=== PATIENT | female | born 1945 | race Caucasian/White ===

== ENCOUNTER → 2019-04-29 12:41 | Outpatient (CLI) | payer MEDICARE, SELFPAY ==
--- NOTE | ~2019-04-29 | MM_ITS ---
EXAMINATION: MM screening [facility] BI w danny HISTORY: Screening mammogram TECHNIQUE: Craniocaudal and mediolateral oblique 3-D tomosynthesis images were obtained and synthetic 2-D images were generated. CAD analysis was submitted and interpreted. COMPARISON: 03/08/2018, 03/02/2016, 02/25/2014 bilateral digital screening mammogram examinations BREAST PARENCHYMAL COMPOSITION: There are scattered areas of fibroglandular density. FINDINGS: There is no evidence of suspicious mass, calcification, or architectural distortion to sugg est malignancy in either breast. There has been no suspicious interval change. IMPRESSION: 1. No mammographic evidence of malignancy. 2. Recommend routine screening mammography in one year. BI-RADS Category 1: Negative Reviewed, dictated and finalized at location A.
== END ==
PROVIDERS: PCP Internal Medicine; Visit Provider Obstetrics & Gynecology Gynecology
DX: Z12.31 Encounter for screening mammogram for malignant neoplasm of breast (principal)
CPT/HCPCS: 77063; 77067

== ENCOUNTER 2020-03-03 08:59 | Outpatient (CLI) | payer MEDICARE, SELFPAY ==
--- NOTE | ~2020-03-03 | US_ITS ---
EXAMINATION: US retroperitoneal duplex ltd, US retroperitoneal comp EXAM DATE: 03/03/2020 09:49 (accession [id number]), 03/03/2020 09:50 (accession [id number]) INDICATION: N18.32 - Chronic kidney disease, stage 3b. Hypertension. TECHNIQUE: Multiple grayscale and Doppler images of the kidneys and renal arteries were obtained (by a technologist who performed the scan) and subsequently reviewed. There is no prior study for compar giovanna. FINDINGS: Right kidney: There is normal contour and echogenicity. It measures 9.3 x 3.7 x 3.5 centimeters. Th ere are no focal renal lesions identified. There is no hydronephrosis. Left kidney: There is normal contour and echogenicity. It measures 9.2 x 3.5 x 4.1 centimeters. Ther e is a cyst measuring up to 2.8 cm. There is no hydronephrosis. Bladder unremarkable. Bilateral ureteral jets were confirmed. The aorta peak systolic velocity is 113 cm/s. The right renal artery peak systolic velocity is 176 cm /s in the proximal segment, 111 cm/s in the mid segment, and 124 cm/s in the distal segment. The left renal artery peak systolic velocity is 109 cm/s in the proximal segment, 115 cm/s in the mid segment , and 114 cm/s in the distal segment. IMPRESSION: 1. Sonographically unremarkable kidneys. 2. Renal artery Doppler velocities within normal limits. Reviewed, dictated and finalized at location B. E CHEF IMPRESSION: 1. Sonographically unremarkable kidneys. 2. Renal artery Doppler velocities within normal limits.
== END 2020-03-03 09:00 | disposition home or self-care (01) ==
PROVIDERS: PCP Internal Medicine; Visit Provider Clinical Nurse Specialist
DX: N18.32 Chronic kidney disease, stage 3b (principal); I10 Essential (primary) hypertension
CPT/HCPCS: 76770; 93976

== ENCOUNTER → 2020-06-25 10:17 | Outpatient (CLI) | payer MEDICARE, SELFPAY ==
--- NOTE | ~2020-06-25 | MM_ITS ---
EXAMINATION: MM screening [facility] BI w danny HISTORY: Screening TECHNIQUE: Craniocaudal and mediolateral oblique 3-D tomosynthesis images were obtained and synthetic 2-D images were generated. CAD analysis was submitted and interpreted. COMPARISON: Comparison to multiple prior studies sequentially, with oldest reviewed study dated 02/25/2014. BREAST PARENCHYMAL COMPOSITION: There are scattered areas of fibroglandular density. FINDINGS: There is no evidence of suspicious mass, calcification, or architectural distortion to sugg est malignancy in either breast. There has been no suspicious interval change. IMPRESSION: 1. No mammographic evidence of malignancy. 2. Recommend routine screening mammography in one year. BI-RADS Category 1: Negative Reviewed, dictated and finalized at location A.
--- NOTE | ~2020-06-25 | DEXA_ITS ---
Bone Density Report Name: Laine Spencer Age: 75 Sex: Female Ethnicity: White Date of : 1945 Indication: postmenopausal; screening for osteoporosis; height loss; Referring Provider: ANNE LEMA Study: Bone densitometry was performed. Exam Date: June 25, 2020 Accession number: [id number] Bone Density: Region BMD T-score Z-score Classification AP Spine (L1-L4) 0.929 -1.1 1.2 Osteopenia Femoral Neck (Left) 0.648 -1.8 0.2 Osteopenia Total Hip (Left) 0.867 -0.6 1.1 Normal Femoral Neck (Right) 0.735 -1.0 1.0 Normal Total Hip (Right) 0.908 -0.3 1.4 Normal Total Hip Mean 0.888 -0.5 1.3 Normal World Health Organization criteria for BMD impression classify patients as: Normal (T-score at or above -1.0), Osteopenia (T-score between -1.0 and -2.5), or Osteoporosis (T-score at or below -2.5). 10-year Fracture Risk(1): Major Osteoporotic Fracture 11% Hip Fracture 2.3% Reported Risk Factors: [place] (), Neck BMD=0.648, BMI=34.0 (1) FRAX(R) Version 3.08. Fracture probability calculated for an untreated patient. Fracture probability may be lower if the patient has received treatment. Previous Exams: Region Exam Age BMD T-score BMD Change BMD Change Date g/cm2 vs Baseline vs Previous AP Spine(L1-L4) 06/25/2020 75 0.929 -1.1 0.022 -0.025* 03/02/2016 71 0.954 -0.8 0.047* 0.047* 02/25/2014 69 0.907 -1.3 Total Hip(Left) 06/25/2020 75 0.867 -0.6 -0.002 0.010 03/02/2016 71 0.858 -0.7 -0.011 -0.011 02/25/2014 69 0.869 -0.6 Total Hip(Right) 06/25/2020 75 0.908 -0.3 0.017 0.012 03/02/2016 71 0.896 -0.4 0.004 0.004 02/25/2014 69 0.891 -0.4 *Denotes significance at 95% confidence level, LSC for AP Spine = 0.022 g/cm2, LSC for Total Hip = 0.027 g/cm2 Clinical Information Provided by Patient: Has used the following medications: Vitamin D, Calcium Patient maximum height was 62 Menopause Age: 42 Drinks caffeinated beverages Onset of menses at age 19 Number of children 0 Impression: The patient has low bone mass, based on the Left Femoral Neck T-score. The patient has an estimated ten-year risk of hip fracture of 2.3% and an estimated ten-year risk of major fracture of 11%, based on the WHO FRAX algorithm. The BMD for the AP Spine(L1-L4) decreased, changing by -0.025 since the last D
== END ==
PROVIDERS: PCP Internal Medicine; Visit Provider Obstetrics & Gynecology Gynecology
DX: Z12.31 Encounter for screening mammogram for malignant neoplasm of breast (principal); Z78.0 Asymptomatic menopausal state; M85.89 Other specified disorders of bone density and structure, multiple sites
CPT/HCPCS: 77063; 77067; 77080

== ENCOUNTER → 2021-08-31 13:22 | Outpatient (CLI) | payer MEDICARE, SELFPAY ==
--- NOTE | ~2021-08-31 | MM_ITS ---
EXAMINATION: MM screening [facility] BI w danny HISTORY: Screening mammogram TECHNIQUE: Craniocaudal and mediolateral oblique 3-D tomosynthesis images were obtained and synthetic 2-D images were generated. CAD analysis was submitted and interpreted. COMPARISON: 06/25/2020, 04/29/2019, 03/08/2018 BREAST PARENCHYMAL COMPOSITION: There are scattered areas of fibroglandular density. FINDINGS: There is no suspicious mass, calcification, or architectural distortion to suggest malignan cy in either breast. There has been no suspicious interval change. IMPRESSION: 1. No mammographic evidence of malignancy. 2. Recommend routine screening mammography in one year. BI-RADS Category 1: Negative Reviewed, dictated and finalized at location A.
== END ==
PROVIDERS: PCP Internal Medicine; Visit Provider Obstetrics & Gynecology Gynecology
DX: Z12.31 Encounter for screening mammogram for malignant neoplasm of breast (principal)
CPT/HCPCS: 77063; 77067

== ENCOUNTER → 2022-02-07 10:48 | Outpatient (CLI) | payer MEDICARE, SELFPAY ==
--- NOTE | ~2022-02-07 | US_ITS ---
Renal-Bladder ultrasound Clinical History: Essential hypertension Technique: Real-time sonographic imaging of the kidneys and urinary bladder was performed. Findings: The right kidney measures 9.1 cm in length and the left kidney measures 8.8 cm. There is no hydronephrosis or renal calculus identified. Renal cortical echogenicity is within normal limits. No solid renal mass lesion is identified. Simple left renal cyst noted. The urinary bladder is partially distended at the time of this exam. No intraluminal echoes are ident ified. No abnormal wall thickening is seen. Impression: No significant abnormality seen. Reviewed, dictated and finalized at location [] E WORKER Impression: No significant abnormality seen.
== END ==
PROVIDERS: PCP Internal Medicine Nephrology; Visit Provider Internal Medicine Nephrology
DX: I10 Essential (primary) hypertension (principal)
CPT/HCPCS: 76775

== ENCOUNTER 2022-03-02 01:27 | Outpatient (CLI) | payer MEDICARE, SELFPAY ==
[2022-02-23 15:13] VITALS: BMI 33.3
--- NOTE | 2022-02-23 15:14 | PC.NURSE ---
Pre Radiology instructions Report to the outpatient [facility] on date _03/02/22 AT 8:30AM____ Procedure Time: _10:30AM___ YOU MAY BE MONITORED AT HOSPITAL FOR UP TO 4 HOURS AFTER YOUR PROCEDURE. A visitors will be allowed to accompany the patient into the hospital. ?The visitor will be instructed to remain with patient at all times or leave the building due to restrictions.? We will allow the visitor to come back to the postoperative area when patient is ready.? NO children visitors allowed at this time. You and your visitor will be asked to self-screen and do not enter if you have any COVID symptoms. A mask is REQUIRED within the hospital. Patients are to have no food or drink 6 hours prior to procedure time Driving will be restricted after the procedure, you must have a person to drive you home. Labs will be drawn in preop area and once reviewed, you will be taken to radiology area for procedure. When the procedure is completed, you will be taken to outpatient where you will be monitored for several hours. You may have one visitor in this area. Other than holding anti-coagulants, patient may take other medication(s) as scheduled. Prior to your appointment date patients are instructed to hold anti-coagulants after discussing with ordering provider to stop. If unable to discontinue anti-coagulants please notify radiologist. ? No aspirin or warfarin (Coumadin) for 7 days prior to the procedure. ? No clopidogrel (Plavix), ticagrelor (Brilinta), prasugrel (Effient) or dabigatran (Pradaxa) for 5 days prior to the procedure. ? No rivaroxaban (Xarelto), apixaban (Eliquis), dipyridamole (Aggrenox or Persantine) or cilostazol (Pletal) for 2 days prior to the procedure. Medications to discontinue per physician: __NONE Date to take last dose: Please leave all valuables, including medications, at home the day of procedure. The hospital will not accept responsibility for valuables. Wear comfortable, loose fitting clothing.? Follow any additional instructions given to you from ordering provider. Telephone instructions given to __PATIENT and asked if any additional questions and then verbalized understanding. Patient advised to call scheduling provider office or registration scheduling [phone] if any additional questions.
[2022-03-02] VITALS (11 sets, daily range): BP systolic 102–152; BP diastolic 43–78; PULSE 64–84; RESP 16–18; TEMP 36.6; O2SAT 99–100
--- NOTE | ~2022-03-02 | US_ITS ---
EXAMINATION: US biopsy renal DATE: 03/02/2022 11:36 INDICATION: Stage III B chronic kidney disease TECHNIQUE: The procedure including the risks, benefits, and alternatives was discussed with the patie nt. Risks discussed included bleeding and infection. The patient understood the risks and agreed to p roceed. A timeout was performed to verify the patient's name, date of , and procedure to be p erformed. The skin overlying the right kidney was prepped and draped in usual sterile fashion. Anes thetic was administered with 1% lidocaine subcutaneously. An 18 gauge core biopsy needle was then us ed to obtain 3 core biopsy specimens under continuous sonographic guidance. The entry site was cleane d and dressed. There were no immediate complications. FINDINGS: Ultrasound images demonstrate the needle in the kidney. IMPRESSION: 1. Ultrasound-guided random right kidney core needle biopsy. Reviewed, dictated and finalized at location A. N CREW
[2022-03-02] MEDS: SODIUM CHLORIDE 0.9% IV 1,000 ML 30 ML IV CONT (08:54)
[2022-03-02 08:57] LABS: Mean Platelet Volume 10.7 fl (7.4-10.4); Platelet Count Result 318 k/mm3 (150-375)
[2022-03-02 09:07] LABS: Prothrombin Time 12.8 Seconds (11.1-14.7)
--- NOTE | 2022-03-02 12:41 | SUR.PHASEII ---
1235 - ambulated to bathroom . gait steady, bandaid remains dry and intact.
== END 2022-03-02 15:30 | disposition home or self-care (01) ==
PROVIDERS: Radiology Diagnostic Radiology; PCP Internal Medicine; Referring Provider Internal Medicine Nephrology; Visit Provider Radiology Diagnostic Radiology
PROC: (CPT 76942; principal; 2022-03-02 10:30)
DX: I12.9 Hypertensive chronic kidney disease with stage 1 through stage 4 chronic kidney disease, or unspecified chronic kidney disease (principal); N18.32 Chronic kidney disease, stage 3b
CPT/HCPCS: 36415; 50200; 76942; 85049; 85610; 88300; 88305; 88313; 88329; 88346; 88348; 88350; J7030

== ENCOUNTER 2022-09-22 01:06 | Day surgery (SDC) | payer MEDICARE, SELFPAY ==
[2022-09-13 13:42] VITALS: BMI 31.2
--- NOTE | 2022-09-21 20:41 | PM.HPGS ---
History of Present Illness History of Present Illness Consent: Risks, benefits, and alternatives have been discussed and questions answered. Patient agrees to proceed with procedure. Chief complaint: other fecal abnormalities Narrative: Laine Spencer is a 77 year old female referred for colon cancer screening Review of Systems Review of Systems: All systems reviewed & are unremarkable except as noted in HPI and below PMFSH Past Medical History Medical History Broken ankle Broken wrist Cholecystectomy planned CKD (chronic kidney disease) stage 3, GFR 30-59 ml/min COVID-19 GERD (gastroesophageal reflux disease) Heart murmur Hyperkalemia Hypertension Family History Family History Father Cerebrovascular accident, Onset Age: 69 Mother Family history of Alzheimer's disease Social History Social History Smoking status: Never smoker Alcohol intake: never Substance use: never Substance use type: does not use Lack of Transportation: No Lack of Food: Never True Current Housing: I Have Housing Concerned About Future Housing: No Difficulty Paying Gas/Electric Bills: No Difficulty Paying for Meds: No Currently Unemployed: No Education: Master's Degree or Higher Difficulty w/ Childcare or Family Care: No Living arrangements: with family Gender identity (if verbalized by the patient): Female Spiritual care concerns: No Meds Home Medications and Allergies Home Medications Medication Instructions Recorded Confirmed Type ergocalciferol (vitamin D2) 1,250 50,000 unit PO WEEKLY 03/04/19 09/13/22 History mcg (50,000 unit) capsule (Vitamin D2) fluticasone propionate 50 2 spray intranasal .prn CONGESTION 01/28/20 09/13/22 History mcg/actuation nasal spray,suspension (Flonase Allergy Relief) amlodipine 2.5 mg tablet 2.5 mg PO QAM #90 tabs 08/01/22 09/13/22 Rx esomeprazole magnesium 40 mg 40 mg PO DAILY #90 caps 08/01/22 09/13/22 Rx capsule,delayed release (Nexium) hydrochlorothiazide 12.5 mg tablet 12.5 mg PO QAM #90 tabs 08/01/22 09/13/22 Rx Allergies Allergy/AdvReac Type Severity Reaction Status Date / Time No Known Allergies Allergy Unknown Verified 09/22/22 09:35 Exam Const: General: alert Orientation/consciousness: patient oriented x3 Resp: Auscultation: clear to auscultation bilaterally Cardio: Rhythm: regular rhythm GI: GI Palp: Yes Soft to palpation and No Tenderness to palpation present (GI) Neuro: General: patient oriented x3 Assessment and Plan Assessment and plan (1) Positive colorectal cancer screening using Cologuard test: Code(s): R19.5 - Other fecal abnormalities Status: Acute Assessment and Plan: Colonoscopy with possible biopsy or polypectomy or cautery or injection of substances.
[2022-09-22 09:35] VITALS: BP 131/65; PULSE 80; RESP 18; TEMP 36.2; O2SAT 99
[2022-09-22] MEDS: LACTATED RINGERS 1,000 ML 150 ML IV CONT (09:46)
--- NOTE | 2022-09-22 10:09 | WPDANESEPPF ---
Anes - Initial Pre Proc Eval Procedure: Operation Date: 09/22/22 11:00 Proposed Procedures p Colonoscopy - Connor Jamil MD Date/Time: 09/22/22 10:09 Surgeon: Connor Jamil MD Pre Op Diagnosis: other fecal abnormalities Patient Data Age: 77 Gender: F Height: 1.57 m Weight: 76.4 kg Last Vital Signs Temp 97.1 F L 09/22/22 09:35 Pulse 80 09/22/22 09:35 Resp 18 09/22/22 09:35 BP 131/65 09/22/22 09:35 Pulse Ox 99 09/22/22 09:35 O2 Del Method Room Air 09/22/22 09:35 Allergies Allergy/AdvReac Type Severity Reaction Status Date / Time No Known Allergies Allergy Unknown Verified 09/22/22 09:35 Home Medications Medication Instructions Recorded Confirmed Type ergocalciferol (vitamin D2) 1,250 50,000 unit PO WEEKLY 03/04/19 09/13/22 History mcg (50,000 unit) capsule (Vitamin D2) fluticasone propionate 50 2 spray intranasal .prn CONGESTION 01/28/20 09/13/22 History mcg/actuation nasal spray,suspension (Flonase Allergy Relief) amlodipine 2.5 mg tablet 2.5 mg PO QAM #90 tabs 08/01/22 09/13/22 Rx esomeprazole magnesium 40 mg 40 mg PO DAILY #90 caps 08/01/22 09/13/22 Rx capsule,delayed release (Nexium) hydrochlorothiazide 12.5 mg tablet 12.5 mg PO QAM #90 tabs 08/01/22 09/13/22 Rx Patient hx anesthesia problems: none Family hx anesthesia problems: none Results Review: All pre-operative results and documents have been reviewed as part of the pre-operative evaluation. [facility] Past Medical History Medical History Broken ankle Broken wrist Cholecystectomy planned CKD (chronic kidney disease) stage 3, GFR 30-59 ml/min COVID-19 GERD (gastroesophageal reflux disease) Heart murmur Hyperkalemia Hypertension Family History Family History Father Cerebrovascular accident, Onset Age: 69 Mother Family history of Alzheimer's disease Social History Social History Smoking status: Never smoker Alcohol intake: never Substance use: never Substance use type: does not use Lack of Transportation: No Lack of Food: Never True Current Housing: I Have Housing Concerned About Future Housing: No Difficulty Paying Gas/Electric Bills: No Difficulty Paying for Meds: No Currently Unemployed: No Education: Master's Degree or Higher Difficulty w/ Childcare or Family Care: No Living arrangements: with family Gender identity (if verbalized by the patient): Female Spiritual care concerns: No Anes - Eval Final PreProcedure Day of Procedure 09/22/22 10:09 Patient weight: normal Heart: regular rate and rhythm Lungs: clear to auscultation Airway: Mallampati scale class II Neurological: alert and oriented Last oral intake: >/= 8 hours ASA classification: III Emergent: no Anesthetic plan: proceed Anesthesia type and monitoring: general GIVS and standard monitoring Results Review: All pre-operative results and documents have been reviewed as part of the pre-operative evaluation. Informed Consent: The patient's anesthetic plan and its attendant risks and benefits were discussed with the patient/family/POA. Questions were solicited and answers provided to the satisfaction of the patient/family/POA.
[2022-09-22 10:41] VITALS: BP 103/57; PULSE 68; RESP 16; O2SAT 96
[2022-09-22 10:51] VITALS: BP 103/52; PULSE 67; RESP 16; O2SAT 96
[2022-09-22 11:01] VITALS: BP 128/62; PULSE 68; RESP 18; O2SAT 99
== END 2022-09-22 11:11 | disposition home or self-care (01) ==
PROVIDERS: PCP Internal Medicine; Visit Provider Internal Medicine Gastroenterology
PROC: 0DJD8ZZ Inspection of Lower Intestinal Tract, Via Natural or Artificial Opening Endoscopic (ICD-10-PCS; CPT 45378; principal; 2022-09-22 11:00)
DX: Z12.11 Encounter for screening for malignant neoplasm of colon (principal); R19.5 Other fecal abnormalities; N18.30 Chronic kidney disease, stage 3 unspecified; K21.9 Gastro-esophageal reflux disease without esophagitis; E87.5 Hyperkalemia; I10 Essential (primary) hypertension; Z79.51 Long term (current) use of inhaled steroids
CPT/HCPCS: G0121; J2704; J7120

== ENCOUNTER → 2022-11-22 10:28 | Outpatient (CLI) | payer MEDICARE, SELFPAY ==
--- NOTE | ~2022-11-22 | MM_ITS ---
EXAMINATION: MM screening [facility] BI w danny HISTORY: Screening mammogram TECHNIQUE: Craniocaudal and mediolateral oblique 3-D tomosynthesis images were obtained and synthetic 2-D images were generated. CAD analysis was submitted and interpreted. COMPARISON: 08/31/2021, 06/25/2020, 04/29/2019 BREAST PARENCHYMAL COMPOSITION: There are scattered areas of fibroglandular density. FINDINGS: No suspicious mass, calcification, or architectural distortion are identified in either joleen ast to suggest malignancy. There has been no suspicious interval change. IMPRESSION: 1. No mammographic evidence of malignancy. 2. Recommend routine screening mammography in one year. BI-RADS Category 1: Negative Reviewed, dictated and finalized at location A.
== END ==
PROVIDERS: PCP Obstetrics & Gynecology Gynecology; Visit Provider Obstetrics & Gynecology Gynecology
DX: Z12.31 Encounter for screening mammogram for malignant neoplasm of breast (principal)
CPT/HCPCS: 77063; 77067

== ENCOUNTER 2024-03-21 10:41 | Outpatient (CLI) | payer MEDICARE, SELFPAY ==
--- NOTE | ~2024-03-21 | MM_ITS ---
EXAMINATION: MM screening [facility] BI w danny HISTORY: Screening TECHNIQUE: Craniocaudal and mediolateral oblique 3-D tomosynthesis images were obtained and synthetic 2-D images were generated. CAD analysis was submitted and interpreted. COMPARISON: Comparison to multiple prior studies sequentially, with oldest reviewed study dated 03/02. BREAST PARENCHYMAL COMPOSITION: Not dense: There are scattered areas of fibroglandular density. FINDINGS: There is no evidence of suspicious mass, calcification, or architectural distortion to sugg est malignancy in either breast. There has been no suspicious interval change. IMPRESSION: 1. No mammographic evidence of malignancy. 2. Recommend routine screening mammography in one year. BI-RADS Category 1: Negative Reviewed, dictated and finalized at location A. KEEPER
== END 2024-03-21 10:42 | disposition home or self-care (01) ==
PROVIDERS: PCP Obstetrics & Gynecology Gynecology; Visit Provider Nurse Practitioner
DX: Z12.31 Encounter for screening mammogram for malignant neoplasm of breast (principal)
CPT/HCPCS: 77063; 77067

== ENCOUNTER 2024-04-01 13:21 | Outpatient (CLI) | payer MEDICARE, SELFPAY ==
--- NOTE | ~2024-04-01 | DEXA_ITS ---
Bone Density Report Name: ADRIAN SOTO Age: 79 Sex: Female Ethnicity: White Date of : 1945 Indication: postmenopausal; screening for osteoporosis; Referring Provider: GILDARDO, ALBERT Study: Bone densitometry was performed. Exam Date: April 01, 2024 Accession number: [id number] Bone Density: Region BMD T-score Z-score Classification AP Spine(L1-L4) 0.886 -1.5 1.1 Osteopenia Femoral Neck (Left) 0.649 -1.8 0.4 Osteopenia Total Hip (Left) 0.905 -0.3 1.6 Normal Femoral Neck (Right) 0.710 -1.3 0.9 Osteopenia Total Hip (Right) 0.926 -0.1 1.8 Normal Total Hip Mean 0.915 -0.2 1.7 Normal World Health Organization criteria for BMD impression classify patients as: Normal (T-score at or above -1.0), Osteopenia (T-score between -1.0 and -2.5), or Osteoporosis (T-score at or below -2.5). 10-year Fracture Risk(1): Major Osteoporotic Fracture 12% Hip Fracture 2.8% Reported Risk Factors: [place] (), Neck BMD=0.649, BMI=34.7 (1) FRAX(R) Version 3.08. Fracture probability calculated for an untreated patient. Fracture probability may be lower if the patient has received treatment. Clinical Information Provided by Patient: Menopause Age: 42 Impression: The patient has low bone mass, based on the Left Femoral Neck T-score. The patient has an estimated ten-year risk of hip fracture of 2.8% and an estimated ten-year risk of major fracture of 12%, based on the WHO FRAX algorithm. Discussion: BONE DENSITY IS LOW AT ONE OR MORE SKELETAL SITES. This patient's lowest T-score is low at one or more skeletal sites. It meets the World Health Organization's (WHO) criteria for ?low bone mass? (T-score between -1.0 and -2.5). The patient's 10-year risk of fracture as calculated by FRAX is less than the threshold where pharmacological therapy is recommended by the National Osteoporosis Foundation (NOF). However, all treatment decisions require clinical judgment and consideration of individual patient factors, including patient preferences, comorbidities, previous drug use, risk factors not captured in the FRAX model (e.g., frailty, falls, vitamin D deficiency, increased bone turnover, interval significant decline in bone density) and possible under or overestimation of fracture risk by FRAX. The patient should follow a healthful lifestyle (good nutrition with adequate calcium and vitamin D, and appropriate weight-bearing exercise). Follow-Up: Consider repeating this study in 2 to 3 years to reassess this patient's status, or sooner if there is some new clinical indication. Reported by: NOY on 04/01/2024 1:55:00 PM. Reviewed, dictated and finalized at location [facility] NULL
--- OUTSIDE RECORDS SUMMARY | 2024-04-01 13:36 | XMS_ITS | Referral Summary ---
Author Organization [facility] Address [address] [place] [address] Care Team Providers Care Stapler Machine Name Role Phone Adebayo Carmen DO Primary Care Provider [phone] Source Comments [facility],non-owned Affiliates and Associated Physician Practices is amultiple site organization consisting of ambulatory clinics and hospital sitesin [place], [place] and [place]. This disclosure is being madepursuant to the Care Everywhere program and may not contain all information available regarding this patient. Last updated 17.[facility] Allergies No known active allergies Medications * Be aware that medications may not be up to date on this document. Alwaysverify current medications with the patient. Medication Sig Dispensed Refills Start Date End Date Status Esomeprazole Magnesium (NEXIUM PO) Active Active Problems Problem Noted Date Diagnosed Date GERD (gastroesophageal reflux disease) 6 Osteoarthritis 12/26/2015 Seasonal allergies 12/26/2015 Social History Tobacco Use Types Packs/Day Years Used Date Smoking Tobacco: Never Smokeless Tobacco: Never Sex and Gender Information Value Date Recorded Sex Assigned at Not on file Gender Identity Not on file Sexual Orientation Not on file Last Filed Vital Signs Vital Sign Reading Time Taken Comments Blood Pressure 142/80 05/05/2017 2:00 PM CDT Pulse 84 05/05/2017 2:00 PM CDT Temperature 36.4 C (97.6 F) 05/05/2017 2:00 PM CDT Respiratory Rate 18 05/05/2017 2:00 PM CDT Oxygen Saturation 98% 05/05/2017 2:00 PM CDT Inhaled Oxygen Concentration - - Weight 72.6 kg (160 lb) 05/05/2017 2:00 PM CDT Height 157.5 cm (5' 2 ) 05/05/2017 2:00 PM CDT Body Mass Index 29.26 05/05/2017 2:00 PM CDT Plan of Treatment Not on file Care Teams Stapler Machine Relationship Specialty Start Date End Date Adebayo Carmen DO PCP - General 03/04/22
--- OUTSIDE RECORDS SUMMARY | 2024-04-01 13:36 | XMS_ITS | Clinical Summary ---
Author Organization [facility] Address [address] [place] [address] Care Team Providers Care Sales Force Administrator Name Role Phone Adebayo Carmen DO Primary Care Provider Source Comments [facility],non-owned Affiliates and Associated Physician Practices is amultiple site organization consisting of ambulatory clinics and hospital sitesin [place], [place], [place] and [place]. This disclosure is being madepursuant to the Care Everywhere program and may not contain all information available regarding this patient. Last updated 17.[facility] Allergies No known active allergies Medications * [...] 05/05/2017 2:00 PM CDT Plan of Treatment Health Maintenance Due Date Last Done Comments BONE DENSITY TESTING 1945 HEPATITIS C SCREENING 01/31/1965 DTAP/TDAP/TD VACCINES (1 - Tdap) 1966 PNEUMOCOCCAL VACCINE 50+ (1 of 1 - PCV) 1997 ZOSTER VACCINE (1 of 2) 1997 SCREENING FOR DIABETES 01/24/2017 Respiratory Syncytial Virus (RSV) Vaccine Pt: or over 60 yrs (1 - 1-dose 75+ series) 2022 COVID-19 VACCINE ( - 2023-2 5 season) 2023 INFLUENZA VACCINE (#1) 2023 DEPRESSION SCREENING 02/21/2024 MEDICARE AWV CALENDAR YEAR 2024 HEPATITIS B VACCINE Aged Out No longe r eligible based on patient's age to complete this topic HIB VACCINE Aged Out No longer eligi ble based on patient's age to complete this topic HPV VACCINE Aged Out No longer eligi ble based on patient's age to complete this topic MENINGOCOCCAL (Group B) VACCINE Aged Out No longer eligible based on patient's age to complete this topic MENINGOCOCCAL VACCINE Aged Out No bozena mechelle eligible based on patient's age to complete this topic Care Teams Sales Force Administrator Relationship Specialty Start Date End Date Adebayo Carmen DO PCP - General 03/04/22
--- OUTSIDE RECORDS SUMMARY | 2024-04-01 13:36 | XMS_ITS | Continuity of Care Document ---
Author Organization [facility] Address [address] [address] [place] [address] Phone Care Team Providers Care Manifest/Order Organizer Print Orders Name Role Phone Mcelroy OD, Boy Unavailable Unavailable Procedures Procedure Date Eye Exam & Treatment Refraction Eye Exam & Treatment Refraction Eye Exam & Treatment Advance Directives Directive Yes / No Effective Date File Name No Information Encounters Encounter Description Practice Location Reason(s) For Visit Diagnoses Date Provider Providers Copied on Encounter [facility], [address] [place] [address] [address], [place], [place], [id number], tel:[phone] [facility] No Information 9-200 9 Mcelroy OD Boy. [address] , [address], [place], [place], [facility], . tel:[phone] [facility], [address] [place] [address] [address], [place], [place], [id number], [place] tel:[phone] [facility] No Information 1-200 8 Mcelroy OD Boy. [address] , [address], [place], [address], [place]. tel:[phone] [facility], [address] [place] [address] [address], [place], [place], [id number], [place] tel:[phone] [facility] No Information 0-200 7 Mcelroy OD Boy. [address] , [address], [place], [address], [place]. tel:[phone] Family History Family Member Type Diagnosis Age At Onset No Information Payers Payer name Insurance type Covered democrat ID Authoriza tion(s) No Information Social History Type Description Quantity Date Captured Comments Sex Female Smoking Status No Information Chief Complaint And Reason For Visit No Information Reason For Referral Reason For Referral No Information History Of Present Illness Encounter Date Complaint History Of Prese nt Illness No Information Functional Status Date Functional Assessmen t No Information Instructions Date Instruction Additional Infor mation No Information Assessments Type Assessment Date No Information Patient Care Teams Name Effective Dates (start - stop) Status Members No Information
--- OUTSIDE RECORDS SUMMARY | 2024-04-01 13:37 | XMS_ITS | Clinical Summary ---
Author Organization [facility] Address [address] [place] [id number] Phone Care Team Providers Care Auricular Detoxification Specialist Name Role Phone HeidiAdebayo burnett Primary Care Provider Allergies No known active allergies Medications Medication Sig Dispensed Refills Start Date End Date Status amLODIPine (NORVASC) 2.5 MG tablet 01/26/2022 Active ergocalciferol (VITAMIN D2) 1.25 MG (16302 UT) capsule 01/27/2022 Active esomeprazole (NexIUM) [address] capsule 01/26/2022 Active hydroCHLOROthiazide (HYDRODIURIL) 12.5 MG tablet 01/26/2022 Active Active Problems Problem Noted Date Diagnosed Date Chronic kidney disease stage 3B 02/02/2022 Essential hypertension 02/02/2022 Dyslipidemia 02/02/2022 COVID-19 12/02/2020 Gastroesophageal reflux disease 12/26/2015 Osteoarthritis 12/26/2015 Seasonal allergy 12/26/2015 Immunizations Name Administration Dates Next Due Influenza TIV (IM) 11/21/2021 Pneumococcal Conjugate 10/22/2019 Social History Tobacco Use Types Packs/Day Years Used Date Smoking Tobacco: Never Smokeless Tobacco: Never Tobacco Cessation:Counseling Given: Not Answered Alcohol Use Standard Drinks/Week Comments Not Currently 0 (1 standard drink = 0.6 oz pur e alcohol) Sex and Gender Information Value Date Recorded Sex Assigned at Not on file Gender Identity Not on file Sexual Orientation Not on file Last Filed Vital Signs Vital Sign Reading Time Taken Comments Blood Pressure 124/70 02/02/2022 10:35 AM FERRY TERMINAL SUPERVISOR Pulse 60 02/02/2022 10:35 AM FERRY TERMINAL SUPERVISOR Temperature 36.1 C (97 F) 02/02/2022 10:35 AM FERRY TERMINAL SUPERVISOR Respiratory Rate - - Oxygen Saturation - - Inhaled Oxygen Concentration - - Weight 78.9 kg (174 lb) 02/02/2022 10:35 AM FERRY TERMINAL SUPERVISOR Height 157.5 cm (5' 2 ) 02/02/2022 10:35 AM FERRY TERMINAL SUPERVISOR Body Mass Index 31.83 02/02/2022 10:35 AM FERRY TERMINAL SUPERVISOR Plan of Treatment Health Maintenance Due Date Last Done Comments Pneumococcal PPSV23/PCV13 65 + Years / High and Highest Risk (1 of 4 - PCV) 1951 Influenza Vaccine (#1) 2023 11/21/2021 Care Teams Auricular Detoxification Specialist Relationship Specialty Start Date End Date Adebayo Carmen DO [address] [place] [address] PCP - General Internal Medicine 12/29/21
--- OUTSIDE RECORDS SUMMARY | 2024-04-01 13:37 | XMS_ITS | Referral Summary ---
Author Organization [facility] [address] Address [address] [place] [address] Care Team Providers Care Tennis Court Attendant Name Role Phone Adebayo Carmen DO Primary Care Provider [phone] Encounters Date Type Department Care Team Description 01/08/2024 6:15 PM ACCOUNT CLASSIFICATION CLERK Office Visit [facility] [address] [place] [address] Cathy Maria, MARY Viral URI with cough (Primary Dx) from Last 3 Months Allergies No known active allergies Medications esomeprazole DR (NexIUM) 40 mg capsule 1 Active amLODIPine (NORVASC) 2.5 mg tablet 1 Active ergocalciferol (VITAMIN D) 50,000 unit capsule 1 Active hydroCHLOROthia zide (HYDRODIURIL) 12.5 mg tablet 1 Active benzonatate (TESSALON) 100 mg capsuleIndicati ons:COVID-19 Take 1 capsule (100 mg total) by mouth 3 (three) times a day as needed for cough 42 capsule 4 Active Additional Information Patient not taking.Reported on 01/08/2024 ezetimibe (ZETIA) 10 mg tablet 4 Active Active Problems Problem Noted Date Diagnosed Date COVID 12/02/2020 Social History Tobacco Use Types Packs/Day Years Used Date Smoking Tobacco: Never Tobacco Cessation:Counseling Given: Not Answered Comments No Sex and Gender Information Value Date Recorded Sex Assigned at Not on file Legal Sex Female 4:44 PM ACCOUNT CLASSIFICATION CLERK Gender Identity Not on file Sexual Orientation Not on file Last Filed Vital Signs Vital Sign Reading Time Taken Comments Blood Pressure 112/62 01/08/2024 6:15 PM ACCOUNT CLASSIFICATION CLERK Pulse 76 01/08/2024 6:15 PM ACCOUNT CLASSIFICATION CLERK Temperature 36.7 C (98.1 F) 01/08/2024 6:15 PM ACCOUNT CLASSIFICATION CLERK Respiratory Rate 19 01/08/2024 6:15 PM ACCOUNT CLASSIFICATION CLERK Oxygen Saturation 96% 01/08/2024 6:15 PM ACCOUNT CLASSIFICATION CLERK Inhaled Oxygen Concentration - - Weight 81.9 kg (180 lb 9.6 oz) 01/08/2024 6:15 P M ACCOUNT CLASSIFICATION CLERK Height 157.5 cm (5' 2 ) 01/08/2024 6:15 PM ACCOUNT CLASSIFICATION CLERK Body Mass Index 33.03 01/08/2024 6:15 PM ACCOUNT CLASSIFICATION CLERK Plan of Treatment Not on file Procedures Procedure Name Priority Date/Time Associated Diagnosis Comments POCT RAPID STREP Routine 01/08/2024 6:47 PM ACCOUNT CLASSIFICATION CLERK Viral URI with cough from Last 3 Months Results * POCT rapid strep A (01/08/2024 6:47 PM ACCOUNT CLASSIFICATION CLERK) Rapid Strep A, POC Negative Negative Swab 01/08/2024 6:47 PM ACCOUNT CLASSIFICATION CLERK Cathy Maria NP POINT OF CARE TEST ORDERABLES Final Result from Last 3 Months Insurance AET[employer] MEDICARE AETNA MEDICARE Care Teams Tennis Court Attendant Relationship Specialty Start Date End Date Adebayo Carmen DO PCP - General Internal Medicine 03/29/18
--- OUTSIDE RECORDS SUMMARY | 2024-04-01 13:37 | XMS_ITS | Patient Health Summary ---
Author Organization [facility] Address [address] [facility] [place] [address] Care Team Providers Care Layer Up Name Role Phone Adebayo Carmen DO Primary Care Provider [phone] Note from [facility],non-owned Affiliates and Associated Physician Practices is amultiple site organization consisting of ambulatory clinics and hospital sitesin [place], [place], [place] and [place]. This disclosure is being madepursuant to the Care Everywhere program and may not contain all information available regarding this patient. Last updated 17.[facility] Allergies No known active allergies Medications * Be aware that medications may not be up to date on this document. Alwaysverify current medications with the patient. * Esomeprazole Magnesium (NEXIUM PO) Active Problems Problem Noted Date Diagnosed Date [...] Mass Index 29.26 05/05/2017 2:00 PM CDT Care Teams Layer Up Relationship Specialty Start Date End Date Adebayo Carmen DO PCP - General 03/04/22
--- OUTSIDE RECORDS SUMMARY | 2024-04-01 13:37 | XMS_ITS | Clinical Summary ---
Author Organization [facility] [address] Address [address] [place] [address] Care Team Providers Care Roll Forming Machine Set Up Operator Name Role Phone Adebayo Carmen DO Primary Care Provider [phone]- [phone] Allergies No known active allergies Medications esomeprazole [...] Problem Noted Date Diagnosed Date COVID 12/02/2020 Encounters Date Type Department Care Team Description 01/08/2024 6:15 PM COLLEGE BASKETBALL COACH Office Visit [facility] [address] [place] [address] Cathy Maria NP Viral URI with cough (Primary Dx) from Last 3 Months Surgical History Surgery Date Site/Laterality Comments CHOLECYSTECTOMY WRIST SURGERY Medical History Medical History Date Comments GERD (gastroesophageal reflux disease) Hypertension Chronic kidney disease Family History Relation Name Status Comments Father Mother Social History Tobacco Use Types Packs/Day Years Used Date Smoking Tobacco: Never Tobacco Cessation:Counseling Given: Not Answered Comments No Sex and Gender Information Value Date Recorded Sex Assigned at Not on file Legal Sex Female 4:44 PM COLLEGE BASKETBALL COACH Gender Identity Not on file Sexual Orientation Not on file Obstetrics History Last Filed Vital Signs Vital Sign Reading Time Taken Comments Blood Pressure 112/62 01/08/2024 6:15 PM COLLEGE BASKETBALL COACH Pulse 76 01/08/2024 6:15 PM COLLEGE BASKETBALL COACH Temperature 36.7 C (98.1 F) 01/08/2024 6:15 PM COLLEGE BASKETBALL COACH Respiratory Rate 19 01/08/2024 6:15 PM COLLEGE BASKETBALL COACH Oxygen Saturation 96% 01/08/2024 6:15 PM COLLEGE BASKETBALL COACH Inhaled Oxygen Concentration - - Weight 81.9 kg (180 lb 9.6 oz) 01/08/2024 6:15 P M COLLEGE BASKETBALL COACH Height 157.5 cm (5' 2 ) 01/08/2024 6:15 PM COLLEGE BASKETBALL COACH Body Mass Index 33.03 01/08/2024 6:15 PM COLLEGE BASKETBALL COACH Plan of Treatment Health Maintenance Due Date Last Done Comments Depression Screening 1945 Hepatitis C Screening 1945 Osteoporosis Screening-Bone Density Scan 1945 DTaP/Tdap/Td Vaccine (1 - Tdap) 1958 Hepatitis B Screening 1965 Zoster Vaccine (1 of 2) 1997 Well Visit 65+ 02/06/2012 Pneumococcal vaccine 65+ (2 of 2 - PPSV23 or PCV20) 10/21/2020 10/22/2019, 07/20/2014 Fall Risk Assessment 12/03/2021 12/03/2020 Influenza Vaccine (#1) 2023 2, 11/20/2019, 11/21/2018, Additional history exists Procedures Procedure Name Priority Date/Time Associated Diagnosis Comments POCT RAPID STREP Routine 01/08/2024 6:47 PM COLLEGE BASKETBALL COACH Viral URI with cough from Last 3 Months Results * POCT rapid strep A (01/08/2024 6:47 PM COLLEGE BASKETBALL COACH) Rapid Strep A, POC Negative Negative Swab 01/08/2024 6:47 PM COLLEGE BASKETBALL COACH Cathy Maria NATIONAL [employer] ANALYST POINT OF CARE TEST ORDERABLES Final Result from Last 3 Months Insurance AETNA MEDICARE AETNA MEDICARE Care Teams Roll Forming Machine Set Up Operator Relationship Specialty Start Date End Date Adebayo Carmen DO PCP - General Internal Medicine 03/29/18
== END 2024-04-01 13:22 | disposition home or self-care (01) ==
PROVIDERS: PCP Internal Medicine; Visit Provider Nurse Practitioner
DX: M85.89 Other specified disorders of bone density and structure, multiple sites (principal); Z78.0 Asymptomatic menopausal state
CPT/HCPCS: 77080

== ENCOUNTER 2025-01-29 11:02 | Outpatient (CLI) | payer MEDICARE, SELFPAY ==
--- NOTE | ~2025-01-29 | XR_ITS ---
XR lumbar spine min 4V Indication: Low back pain x 2 months, no inj, no surg Comparison: None Findings: Levoconvex scoliosis. Grade 1 anterolisthesis of L4 on L5, grade 1 retrolisthesis of T12 on L1 L1 on L2 and L2 on L3. No fracture is identified. Moderate to severe loss of disc height throughout. Soft tissues unremarkable Impression: No acute abnormality. Reviewed, dictated and finalized at location P. H ENGINE OPERATOR Impression: No acute abnormality.
== END 2025-01-29 11:03 | disposition home or self-care (01) ==
LOC: GOSHIMG 11:03
PROVIDERS: PCP Nurse Practitioner; Visit Provider Nurse Practitioner
DX: M41.86 Other forms of scoliosis, lumbar region (principal); M43.16 Spondylolisthesis, lumbar region; M43.17 Spondylolisthesis, lumbosacral region
CPT/HCPCS: 72110